=== PATIENT | female | born 1945 | race Caucasian/White ===

== ENCOUNTER → 2020-01-17 19:01 | Outpatient (ROUT) | payer MEDICARE, SELFPAY ==
[2020-01-17 19:52] LABS: Alanine Aminotransferase 28 IU/L (<35); Albumin 4.3 g/dL (3.5-5.0); Albumin Globulin Ratio 1.4 (1.0-2.8); Alkaline Phosphatase 85 U/L (38-126); Aspartate Aminotransferase 30 IU/L (14-36); BUN Creatinine Ratio 22.6 (6-22); Bilirubin Total 0.4 mg/dL (0.2-1.3); Blood Urea Nitrogen 14 mg/dL (7-17); Calcium 9.8 mg/dL (8.4-10.2); Carbon Dioxide 28 mmol/L (22-32); Chloride 100 mmol/L (98-107); Cholesterol 201 mg/dL (140-199); Estimated Glomerular Filt Rate > 60.0 mL/min (>60); Globulin 3.1 g/dL (1.7-4.1); Glucose 88 mg/dL (80-110); HDL Cholesterol 31 mg/dL (40-60); HEMOLYSIS < 15 (0-50); LDL Cholesterol Calculated 126 mg/dL (<100); Potassium 4.2 mmol/L (3.4-5.1); Sodium 135 mmol/L (137-145); Total Protein 7.4 g/dL (6.3-8.2); Triglycerides 222 mg/dL (35-150)
[2020-01-17 19:56] LABS: Hemoglobin 14.4 g/dL (12.0-16.0); Mean Corpuscular HGB Conc 34.3 % (30-36); Mean Corpuscular Hemoglobin 29.5 PG (26-34); Platelet Count 242 X10^3/uL (150-400); Red Blood Cell Count 4.89 X10^6/uL (4.0-5.2); Red Cell Distribution Width 12.5 % (11.6-14.8)
[2020-01-17 20:23] LABS: TSH w/ Reflex to FT4 0.31 uIU/mL (0.47-4.68)
[2020-01-17 20:51] LABS: Free T4, Direct Thyroxine 1.32 ng/dL (0.78-2.19)
[2020-01-19 16:32] LABS: Hep C Virus Ab w/Reflex Quant NEGATIVE s/c (NEGATIVE)
== END ==
PROVIDERS: Family Provider Family Medicine; PCP Family Medicine; Visit Provider Internal Medicine
DX: Z20.9 Contact with and (suspected) exposure to unspecified communicable disease (principal); E78.2 Mixed hyperlipidemia; R53.83 Other fatigue
CPT/HCPCS: 80053; 80061; 84439; 84443; 85027; 86803

== ENCOUNTER → 2021-11-27 12:29 | Outpatient (CLI) | payer MEDICARE, SELFPAY | PROVIDERS: Family Provider Family Medicine; PCP Internal Medicine; Referring Provider Internal Medicine; Visit Provider Internal Medicine | DX: Z78.0 Asymptomatic menopausal state (principal); Z13.820 Encounter for screening for osteoporosis; Z79.890 Hormone replacement therapy; Z85.840 Personal history of malignant neoplasm of eye | CPT/HCPCS: 77080 ==

== ENCOUNTER → 2022-01-23 11:37 | Outpatient (CLI) | payer MEDICARE, SELFPAY ==
[2022-01-23 12:37] LABS: Hematocrit 40.1 % (36-46); Hemoglobin 14.1 g/dL (12.0-16.0); Mean Corpuscular Hemoglobin 29.1 PG (26-34); Platelet Count 218 X10^3/uL (150-400); Red Blood Cell Count 4.84 X10^6/uL (4.0-5.2); Red Cell Distribution Width 12.5 % (11.6-14.8); White Blood Cell Count 5.8 X10^3/uL (4.5-11.0)
[2022-01-23 13:50] LABS: Alanine Aminotransferase 23 IU/L (<35); Albumin 4.2 g/dL (3.5-5.0); Albumin Globulin Ratio 1.4 (1.0-2.8); Alkaline Phosphatase 88 U/L (38-126); Aspartate Aminotransferase 29 IU/L (14-36); BUN Creatinine Ratio 27.3 (6-22); Bilirubin Total 0.4 mg/dL (0.2-1.3); Blood Urea Nitrogen 18 mg/dL (7-17); Calcium 8.7 mg/dL (8.4-10.2); Carbon Dioxide 25 mmol/L (22-32); Chloride 102 mmol/L (98-107); Cholesterol 188 mg/dL (140-199); Estimated Glomerular Filt Rate > 60 mL/min (>60); Globulin 3.1 g/dL (1.7-4.1); Glucose 92 mg/dL (80-110); HDL Cholesterol 36 mg/dL (40-60); HEMOLYSIS < 15 (0-50); LDL Cholesterol Calculated 125 mg/dL (<100); Potassium 4.2 mmol/L (3.4-5.1); Sodium 137 mmol/L (137-145); Total Protein 7.3 g/dL (6.3-8.2); Triglycerides 136 mg/dL (35-150)
[2022-01-23 14:07] LABS: Free T3, Triiodothyronine Free 3.31 pg/mL (2.77-5.27); Free T4, Direct Thyroxine 1.22 ng/dL (0.78-2.19)
[2022-01-23 14:20] LABS: Thyroid Stimulating Hormone 0.875 uIU/mL (0.47-4.68)
== END ==
PROVIDERS: Family Provider Family Medicine; PCP Internal Medicine; Referring Provider Internal Medicine; Visit Provider Internal Medicine
DX: R53.83 Other fatigue (principal); E78.2 Mixed hyperlipidemia
CPT/HCPCS: 36415; 80053; 80061; 84439; 84443; 84481; 85027

== ENCOUNTER → 2022-07-02 08:57 | Outpatient (CLI) | payer MEDICARE, SELFPAY ==
--- NOTE | 2022-07-02 09:00 | DI.RAD.S_ITS ---
PROCEDURE: XR LUMBAR SPINE 2-3V INDICATIONS: right back pain TECHNIQUE: 3 views of the lumbar spine were acquired. COMPARISON: None. FINDINGS: Bones: 5 [id number] vertebrae are present. There is 8 mm anterolisthesis of L4 on L5. 6 mm retrolisthesis of L1 on L2 is also seen. Degenerative endplate changes and loss of disc height throughout lumbar spine is seen. No vertebral body compression fractures. No suspicious bony lesions. Soft tissues: Overlying bowel gas pattern is normal. No suspicious soft tissue calcifications. IMPRESSION: Degenerative disc disease throughout lumbar spine. Grade 1 spondylolisthesis at L1-2 and L4-5 levels as above. No acute compression fracture. Dictated by: Mateus Hudson M.D. on 07/02/2022 at 10:11 Approved by: Mateus Hudson M.D. on 07/02/2022 at 10:20
[2022-07-02 10:44] LABS: Hematocrit 42.7 % (36-46); Hemoglobin 14.3 g/dL (12.0-16.0); Mean Corpuscular HGB Conc 33.5 % (30-36); Mean Corpuscular Hemoglobin 28.3 PG (26-34); Mean Corpuscular Volume 84.5 fL (80-100); Platelet Count 250 X10^3/uL (150-400); Red Blood Cell Count 5.05 X10^6/uL (4.0-5.2); Red Cell Distribution Width 12.9 % (11.6-14.8); White Blood Cell Count 6.3 X10^3/uL (4.5-11.0)
[2022-07-02 11:56] LABS: INR 1.1 (0.9-1.3); Prothrombin Time 12.3 SECONDS (10.1-12.7)
[2022-07-02 11:59] LABS: PTT Partial Thromboplastin Tim 29 SECONDS (26-36)
[2022-07-02 12:08] LABS: Alanine Aminotransferase 33 IU/L (<35); Albumin 4.5 g/dL (3.5-5.0); Albumin Globulin Ratio 1.4 (1.0-2.8); Alkaline Phosphatase 90 U/L (38-126); Aspartate Aminotransferase 32 IU/L (14-36); BUN Creatinine Ratio 30.6 (6-22); Bilirubin Total 0.5 mg/dL (0.2-1.3); Blood Urea Nitrogen 19 mg/dL (7-17); Calcium 9.4 mg/dL (8.4-10.2); Carbon Dioxide 25 mmol/L (22-32); Chloride 99 mmol/L (98-107); Estimated Glomerular Filt Rate > 60 mL/min (>60); Globulin 3.2 g/dL (1.7-4.1); Glucose 92 mg/dL (80-110); HEMOLYSIS < 15 (0-50); Potassium 4.2 mmol/L (3.4-5.1); Sodium 135 mmol/L (137-145); Total Protein 7.7 g/dL (6.3-8.2)
== END ==
PROVIDERS: Family Provider Family Medicine; PCP Internal Medicine; Referring Provider Internal Medicine; Visit Provider Internal Medicine
DX: M51.36 Other intervertebral disc degeneration, lumbar region (principal); M43.16 Spondylolisthesis, lumbar region; E78.2 Mixed hyperlipidemia; M19.91 Primary osteoarthritis, unspecified site; Z01.818 Encounter for other preprocedural examination; G89.29 Other chronic pain; M54.50 Low back pain, unspecified
CPT/HCPCS: 36415; 72100; 80053; 85027; 85610; 85730; 93005

== ENCOUNTER → 2024-10-26 10:20 | Outpatient (CLI) | payer MEDICARE, SELFPAY ==
[2024-10-26 11:37] LABS: Hemoglobin 14.6 g/dL (12.0-16.0); Mean Corpuscular HGB Conc 34.8 % (30-36); Mean Corpuscular Hemoglobin 29.5 PG (26-34); Mean Corpuscular Volume 84.8 fL (80-100); Platelet Count 227 X10^3/uL (150-400); Red Blood Cell Count 4.95 X10^6/uL (4.0-5.2); Red Cell Distribution Width 13.2 % (11.6-14.8); White Blood Cell Count 5.1 X10^3/uL (4.5-11.0)
[2024-10-26 12:03] LABS: Erythrocyte Sedimentation Rate 22 MM/HR (0-20)
[2024-10-26 12:05] LABS: Alanine Aminotransferase 28 IU/L (<35); Albumin 4.3 g/dL (3.5-5.0); Albumin Globulin Ratio 1.7 (1.0-2.8); Alkaline Phosphatase 84 U/L (38-126); Aspartate Aminotransferase 29 IU/L (14-36); Bilirubin Total 0.7 mg/dL (0.2-1.3); Blood Urea Nitrogen 18 mg/dL (7-17); C-Reactive Protein Quant < 0.5 mg/dL (<1.0); Carbon Dioxide 27 mmol/L (22-32); Chloride 103 mmol/L (98-107); Estimated Glomerular Filt Rate > 60 mL/min (>60); Globulin 2.6 g/dL (1.7-4.1); Glucose 96 mg/dL (70-99); HEMOLYSIS < 15 (0-50); Potassium 4.2 mmol/L (3.4-5.1); Sodium 136 mmol/L (137-145); Total Protein 6.9 g/dL (6.3-8.2)
[2024-10-26 12:34] LABS: TSH w/ Reflex to FT4 0.35 uIU/mL (0.47-4.68)
[2024-10-26 12:53] LABS: Vitamin B12 > 1000 pg/mL (239-931)
[2024-10-26 15:25] LABS: Free T4, Direct Thyroxine 1.33 ng/dL (0.78-2.19)
== END ==
PROVIDERS: Family Provider Family Medicine; PCP Internal Medicine; Referring Provider Internal Medicine; Visit Provider Internal Medicine
DX: M19.90 Unspecified osteoarthritis, unspecified site (principal); E56.9 Vitamin deficiency, unspecified; E78.2 Mixed hyperlipidemia; E55.9 Vitamin D deficiency, unspecified
CPT/HCPCS: 36415; 80053; 82306; 82607; 84439; 84443; 85027; 85651; 86140